=== PATIENT | male | born 1975 | race Two or more races ===

== ENCOUNTER 2021-05-09 19:32 | Emergency (ER) | payer SELFPAY ==
[~2021-05-09] VITALS: Ht 195.6 cm; Wt 88.5 kg
--- NOTE | 2021-05-09 21:20 | NUR ---
Patient eloped from facility. ER physician notified.
== END 2021-05-09 21:35 | disposition left against medical advice (07) ==
LOC: ER 19:34
DX: Z53.21 Procedure and treatment not carried out due to patient leaving prior to being seen by health care provider (principal)